=== PATIENT | male | born 1975 | race Two or more races ===

== ENCOUNTER 2021-02-02 20:40 | Emergency (ER) | payer MEDICAID ==
[~2021-02-02] VITALS: Ht 172.7 cm; Wt 72.6 kg
--- NOTE | 2021-02-02 21:15 | NUR ---
PATIENT WAS MSE BY DR COHEN IN ROOM 05A.
[2021-02-02] MEDS ORDERED: LORAZEPAM 2 MG/1 ML VIAL ONE (21:27)
[2021-02-02] MEDS ORDERED: THIAMINE HCL 200 MG/2 ML VIAL ONE (21:27)
[2021-02-02] MEDS ORDERED: LORAZEPAM 2 MG/1 ML VIAL IV ONE (21:30)
[2021-02-02] MEDS ORDERED: THIAMINE HCL 200 MG/2 ML VIAL IV ONE (21:30)
[2021-02-02] MEDS ORDERED: IV NS 1000 ML 1,000 ML IV ONE (21:30)
[2021-02-02 21:43] LABS: BASOPHILS # (AUTO) 0.1 K/uL (0.0-8.0); BASOPHILS % (AUTO) 1.2 % (0.0-2.0); EOSINOPHILS # (AUTO) 0.1 K/uL (0.0-0.7); EOSINOPHILS % (AUTO) 1.5 % (0.0-7.0); HEMATOCRIT 42.7 % (36.7-47.1); HEMOGLOBIN 14.5 g/dL (12.5-16.3); LYMPHOCYTES # (AUTO) 2.4 K/uL (20.0-40.0); LYMPHOCYTES % (AUTO) 27.3 % (20.5-51.5); MEAN CORPUSCULAR HEMOGLOBIN 28.6 uug (23.8-33.4); MEAN CORPUSCULAR HGB CONC 34 g/dL (32.5-36.3); MEAN CORPUSCULAR VOLUME 84.2 fL (73.0-96.2); MONOCYTES # (AUTO) 0.8 K/uL (2.0-10.0); NEUTROPHILS # (AUTO) 5.5 K/uL (1.8-8.9); PLATELET COUNT (AUTO) 283 K/uL (152-348); RED BLOOD CELL COUNT(AUTO) 5.07 MIL/uL (4.06-5.63); WHITE BLOOD COUNT (AUTO) 8.9 K/uL (3.6-10.2)
[2021-02-02 21:48] LABS: POTASSIUM 3.9 mmol/L (3.5-5.1)
[2021-02-02 21:54] LABS: BILIRUBIN,TOTAL 0.6 mg/dL (0.2-1.0)
[2021-02-02] MEDS ORDERED: LORAZEPAM 0.5 MG TABLET PO ONE (23:45)
[2021-02-02] MEDS ORDERED: ONDANSETRON ODT 4 MG TAB.RAPDIS SL ONE (23:45)
[2021-02-02] MEDS ORDERED: ONDANSETRON ODT 4 MG TAB.RAPDIS ONE (23:52)
[2021-02-02] MEDS ORDERED: LORAZEPAM 1 MG TABLET ONE (23:53)
[2021-02-03 00:05] VITALS: BP 125/78
--- NOTE | 2021-02-03 00:10 | NUR ---
Patient discharged to home in stable condition. Written and verbal after care instructions given. Patient verbalizes understanding of instructions. Stressed follow up or return to ER for worsening s/s.
== END 2021-02-03 00:10 | disposition home or self-care (01) ==
LOC: ER 20:43
DX: F10.230 Alcohol dependence with withdrawal, uncomplicated (principal); F15.10 Other stimulant abuse, uncomplicated; Y90.5 Blood alcohol level of 100-119 mg/100 ml; F20.9 Schizophrenia, unspecified; F31.9 Bipolar disorder, unspecified; Z91.5 Personal history of self-harm; F13.239 Sedative, hypnotic or anxiolytic dependence with withdrawal, unspecified
CPT/HCPCS: 36415; 80053; 80320; 85025; 96365; 96375; 99284; J2060; J3411; A4663; G0480; J7030; Q0162